=== PATIENT | female | born 1950 | race Caucasian/White ===

== ENCOUNTER 2017-07-16 20:27 | Inpatient (IN) ==
[2017-07-17] MEDS: SODIUM CHLORIDE 0.9% 1,000 ML IV SCH ×4 (00:16→20:07)
[2017-07-17] MEDS: ONDANSETRON 4 MG/2 ML VIAL IV PRN ×2 (00:21→04:38)
[2017-07-17] MEDS: MORPHINE 4 MG/1 ML VIAL IV PRN ×4 (00:21→13:35)
[2017-07-17] MEDS ORDERED: PANTOPRAZOLE INJ 200 MG in SODIUM CHLORIDE 0.9% 250 ML IV SCH (00:30)
[2017-07-17 01:23] LABS: Albumin 3.3 G/DL (3.4-5.0); Calcium 8.6 MG/DL (8.5-10.1); Osmolality,Calculated 286.8 MOS/KG (273-304); Potassium 3.9 MMOL/L (3.5-5.1); Total Protein 7.2 G/DL (6.4-8.3)
[2017-07-17 01:24] LABS: Basophils % 0.2 % (0.0-0.8); Hematocrit 34.2 VOL% (35.7-47.0); Hemoglobin 11.6 GM/DL (12.0-16.0); Immature Granulocytes % 0.5 %; Immature Granulocytes Absolute 0.09 #; Lymphocytes # 0.5 10*3/uL (1.4-4.0); Lymphocytes % 2.9 % (21.3-54.2); Mean Corpuscular HGB Conc 33.9 GM/DL (32-36); Mean Corpuscular Hemoglobin 33 PG (27-34); Mean Corpuscular Volume 96.9 FL (87-102); Mean Platelet Volume 11.2 FL (9.6-12.0); Monocytes % 5.7 % (1.7-12.7); Neutrophils # 15.2 10*3/uL (1.4-7.4); Neutrophils % 90.7 % (38.7-73.9); Platelet Count 110 T/CUMM (130-400); Red Blood Count 3.53 MC/CUMM (3.8-5.5); Red Cell Distribution Width 13.8 % (9.3-17.3); White Blood Count 16.8 T/CUMM (4-12)
[2017-07-17 02:30] LABS: Band Neutrophils 22 % (0-10); Lymphocytes 5 % (20-55); Segmented Neutrophils 71 % (50-85); Total Cells Counted 100
[2017-07-17 06:17] LABS: Basophils # 0.1 10*3/uL (0.0-0.2); Basophils % 0.4 % (0.0-0.8); Eosinophils % 0.1 % (0.00-10.9); Hematocrit 32.2 VOL% (35.7-47.0); Immature Granulocytes % 0.5 %; Immature Granulocytes Absolute 0.07 #; Lymphocytes % 7.5 % (21.3-54.2); Mean Corpuscular HGB Conc 34.2 GM/DL (32-36); Mean Corpuscular Hemoglobin 33 PG (27-34); Mean Corpuscular Volume 97.6 FL (87-102); Mean Platelet Volume 11.2 FL (9.6-12.0); Monocytes % 7.5 % (1.7-12.7); Neutrophils # 11.6 10*3/uL (1.4-7.4); Platelet Count 91 T/CUMM (130-400); Red Cell Distribution Width 13.7 % (9.3-17.3); White Blood Count 13.8 T/CUMM (4-12)
[2017-07-17 07:00] LABS: Hypochromasia 1+; Ovalocytes Slight; Platelet Estimate Decreased
[2017-07-17] MEDS ORDERED: ONDANSETRON 4 MG/2 ML VIAL IV PRN (09:09)
[2017-07-17] MEDS ORDERED: PROMETHAZINE INJ 25 MG in SODIUM CHLORIDE 0.9% 50 ML IV PRN (09:09)
[2017-07-17] MEDS ORDERED: LIDOCAINE 1% 5 ML VIAL ONE (15:00)
[2017-07-17] MEDS ORDERED: PHENYLEPHRINE 1 MG/10 ML SYRINGE IV ONE (15:00)
[2017-07-17] MEDS ORDERED: PROPOFOL 200 MG/20 ML VIAL IV ONE (15:00)
[2017-07-17] MEDS: PANTOPRAZOLE 40 MG VIAL IV SCH (22:24)
[2017-07-18] MEDS: SODIUM CHLORIDE 0.9% 1,000 ML IV SCH ×2 (03:20→11:15)
[2017-07-18] MEDS: MORPHINE 4 MG/1 ML VIAL IV PRN ×2 (06:08→12:30)
[2017-07-18] MEDS: PANTOPRAZOLE 40 MG VIAL IV SCH (08:54)
[2017-07-18 12:25] VITALS: BP 147/77
[2017-07-18 13:03] LABS: Basophils % 0.5 % (0.0-0.8); Eosinophils # 0.2 10*3/uL (0.0-0.87); Eosinophils % 3.5 % (0.00-10.9); Hematocrit 34.1 VOL% (35.7-47.0); Hemoglobin 11.7 GM/DL (12.0-16.0); Immature Granulocytes % 0.5 %; Immature Granulocytes Absolute 0.03 #; Lymphocytes # 1.4 10*3/uL (1.4-4.0); Lymphocytes % 21.5 % (21.3-54.2); Mean Corpuscular HGB Conc 34.3 GM/DL (32-36); Mean Corpuscular Hemoglobin 33 PG (27-34); Mean Corpuscular Volume 96.9 FL (87-102); Mean Platelet Volume 11.7 FL (9.6-12.0); Monocytes # 0.6 10*3/uL (0.11-0.8); Monocytes % 9.2 % (1.7-12.7); Neutrophils # 4.1 10*3/uL (1.4-7.4); Neutrophils % 64.8 % (38.7-73.9); Red Blood Count 3.52 MC/CUMM (3.8-5.5); Red Cell Distribution Width 13.3 % (9.3-17.3); White Blood Count 6.3 T/CUMM (4-12)
[2017-07-18 13:06] LABS: Platelet Count 82 T/CUMM (130-400)
[2017-07-18 14:26] LABS: Macrocytosis 1+
[2017-07-20] MEDS ORDERED: PANTOPRAZOLE 40 MG VIAL IV SCH (09:00)
== END 2017-07-18 14:13 | disposition home or self-care (01) | DRG 155 ==
LOC: N.5E 22:53 → SUATTDRO 22:53 → N.CC 07-17 00:04 → N.2E 07-17 15:02
PROVIDERS: ADMIT Internal Medicine; ATTEND Internal Medicine Infectious Disease